=== PATIENT | male | born 1985 | race Caucasian/White ===

== ENCOUNTER 2022-11-12 19:48 | Emergency (ER) | payer BC, OTHER ==
[2022-11-12 20:34] VITALS: RESP 18; TEMP 98.7
--- NOTE | 2022-11-12 22:25 | XR ---
EXAMINATION TYPE: XR chest 1V portable DATE OF EXAM: 11/12/2022 COMPARISON: None INDICATION: Pain, URI TECHNIQUE: Single frontal view of the chest is obtained. FINDINGS: The heart size is normal. The pulmonary vasculature is normal. The lungs are clear. IMPRESSION: 1. No acute pulmonary process.
[2022-11-12] MEDS ORDERED: KETOROLAC 15 MG/ML 1 ML VIAL IM STA (23:36)
--- NOTE | 2022-11-12 23:52 | ED ---
General Adult HPI - General Chief complaint: Upper Respiratory Infection Stated complaint: Sore Throat Time Seen by Provider: 11/12/22 21:16 Source: patient Mode of arrival: ambulatory Limitations: no limitations - History of Present Illness Initial comments: 7-year-old male with no significant past medical history presented to the ED with chief complaint of URI symptoms. Patient states over the past 3 days has had cough, congestion, sore throat, and myalgias. States that he has used her tach with no relief of this prompting further evaluation in the ED. Denies chest pain or shortness of breath. No other complaints. - Related Data Previous Rx's Medication Instructions Recorded Guaifenesin/Pseudoephedrne HCl 1 tab PO BID PRN 7 Days #14 tab 11/12/22 [Mucinex D ER 1,200-120 mg Tab] Allergies Allergy/AdvReac Type Severity Reaction Status Date / Time No Known Allergies Allergy Verified 11/12/22 20:34 Review of Systems ROS Statement: Those systems with pertinent positive or pertinent negative responses have been documented in the HPI. ROS Other: All systems not noted in ROS Statement are negative. Past Medical History Past Medical History: No Reported History History of Any Multi-Drug Resistant Organisms: MRSA Past Surgical History: No Surgical Hx Reported Past Psychological History: No Psychological Hx Reported Smoking Status: Current every day smoker Past Alcohol Use History: Rare Past Drug Use History: None Reported General Exam Limitations: no limitations General appearance: alert, in no apparent distress Head exam: Present: atraumatic, normocephalic, other (Left maxillary tenderness to palpation) Eye exam: Present: normal appearance ENT exam: Present: mucous membranes moist, TM's normal bilaterally, other (Tonsils Minimally enlarged, no exudate.) Respiratory exam: Present: normal lung sounds bilaterally Cardiovascular Exam: Present: regular rate, normal rhythm GI/Abdominal exam: Present: soft Neurological exam: Present: alert, oriented X3 Psychiatric exam: Present: normal affect, normal mood Skin exam: Present: warm, dry Course Vital Signs 11/12/22 20:31 Temperature 98.7 F Pulse Rate 88 Respiratory 18 Rate Blood Pressure 110/88 O2 Sat by Pulse 97 Oximetry Medical Decision Making - Medical Decision Making Was pt. sent in by a medical professional or institution (, PA, LENS GENERATING MACHINE TENDER, urgent care, hospital, or alf...) When possible be specific @ -No Did you speak to anyone other than the patient for history (EMS, parent, family, police, friend...)? What history was obtained from this source @ -No Did you review nursing and triage notes (agree or disagree)? Why? @ -I reviewed and agree with nursing and triage notes Were old charts reviewed (outside hosp., previous admission, EMS record, old EKG, old radiological studies, urgent care reports/EKG's, alf records)? Report findings @ -No old charts were reviewed Differential Diagnosis (chest pain, altered mental status, abdominal pain women, abdominal pain men, vaginal bleeding, weakness, fever, dyspnea, syncope, headache, dizziness, GI bleed, back pain, seizure, CVA, palpatations, mental health, musculoskeletal)? @ -Differential Fever: Pneumonia, viral URI, endocarditis, myocarditis, pericarditis, otitis, sinusitis, peritonsillar Abscess, retropharyngeal Abscess, epiglottitis, peritonitis, appendicitis, Basia cystitis, diverticulitis, hepatitis, colitis, UTI, PID, TOA, pyelonephritis, prostatitis, epididymitis, meningitis, encephalitis, pulmonary embolism, CVA, thyroid storm, pancreatitis, adrenal crisis, cavernous sinus thrombosis, this is not meant to be an all-inclusive list. EKG interpreted by me (3pts min.). @ -As above X-rays interpreted by me (1pt min.). @ -Chest x-ray showed no evidence of pneumonia or other acute process. CT interpreted by me (1pt min.). @ -None done U/S interpreted by me (1pt. min.). @ -None done What testing was considered but not performed or refused? (CT, X-rays, U/S, labs)? Why? @ -Laboratory studies were considered however at this time patient is afebrile symptoms most likely due to viral URI. What meds were considered but not given or refused? Why? @ -None Did you discuss the management of the patient with other professionals (professionals i.e. , PA, LENS GENERATING MACHINE TENDER, lab, RT, psych nurse, social media marketing specialist, hot mill operator, teacher, front desk officer, patient case manager)? Give summary @ -No Was smoking cessation discussed for >3mins.? @ -No Was critical care preformed (if so, how long)? @ -No Were there social determinants of health that impacted care today? How? (Homelessness, low income, unemployed, alcoholism, drug addiction, transportation, low edu. Level, literacy, decrease access to med. care, intermediate, rehab)? @ -No Was there de-escalation of care discussed even if they declined (Discuss DNR or withdrawal of care, Hospice)? DNR status @ -No What co-morbidities impacted this encounter? (DM, HTN, Smoking, COPD, CAD, Cancer, CVA, ARF, Chemo, Hep., AIDS, mental health diagnosis, sleep apnea, morbid obesity)? @ -None Was patient admitted / discharged? Hospital course, mention meds given and route, prescriptions, significant lab abnormalities, going to OR and other pertinent info. @ -Charged. Chest x-ray as above. Patient had improvement of symptoms with Toradol. Four panel negative for influenza A, influenza B, RSV, and COVID. Sent home with a prescription for Mucinex D. Discussed return precautions with patient who verbalizes agreement. Undiagnosed new problem with uncertain prognosis? @ -No Drug Therapy requiring intensive monitoring for toxicity (Heparin, Nitro, Insulin, Cardizem)? @ -No Were any procedures done? @ -No Diagnosis/symptom? @ -Viral URI, sinusitis Acute, or Chronic, or Acute on Chronic? @ -Acute Uncomplicated (without systemic symptoms) or Complicated (systemic symptoms)? @ -Uncomplicated Side effects of treatment? @ -No Exacerbation, Progression, or Severe Exacerbation? @ -No Poses a threat to life or bodily function? How? (Chest pain, USA, MA, pneumonia, PE, COPD, DKA, ARF, appy, cholecystitis, CVA, Diverticulitis, Homicidal, Suicidal, threat to staff... and all critical care pts) @ -No - Lab Data Lab Results 11/12/22 Range/Units 22:05 Influenza Type A (PCR) Not Detected (Not Detectd) Influenza Type B (PCR) Not Detected (Not Detectd) RSV (PCR) Not Detected (Not Detectd) SARS-CoV-2 (PCR) Not Detected (Not Detectd) Disposition Clinical Impression: Sinusitis Disposition: HOME SELF-CARE Condition: Good Instructions (If sedation given, give patient instructions): Sinusitis (ED), Upper Respiratory Infection (ED) Additional Instructions: Please return to the Emergency Department if symptoms worsen or any other concerns. Prescriptions: Guaifenesin/Pseudoephedrne HCl [Mucinex D ER 1,200-120 mg Tab] 1 tab PO BID PRN 7 Days #14 tab PRN Reason: Nasal Congestion Is patient prescribed a controlled substance at d/c from ED?: No Referrals: Nonstaff,Physician [Primary Care Provider] - 1-2 days Time of Disposition: 23:52
[2022-11-13 00:01] VITALS: BP 112/72; PULSE 72
== END 2022-11-13 00:01 | disposition home or self-care (01) ==
LOC: EC 19:48
DX: J32.0 Chronic maxillary sinusitis (principal); F17.200 Nicotine dependence, unspecified, uncomplicated; Z20.822 Contact with and (suspected) exposure to COVID-19
CPT/HCPCS: 87636; 71045; 99283; 96372; J1885

== ENCOUNTER 2024-03-31 06:46 | Emergency (ER) | payer BC, OTHER ==
[2024-03-31] MEDS: TETRACAINE 0.5% OPHTH (PF) DROPS 4 ML BTL RIGHT EYE STA (08:11)
[2024-03-31] MEDS: FLUORESCEIN STRIPS 1 MG STRIP RIGHT EYE ONE (08:11)
--- NOTE | 2024-03-31 08:59 | ED ---
General Adult HPI - General Chief complaint: Eye Problems Stated complaint: R eye infection Time Seen by Provider: 03/31/24 07:35 Source: patient, RN notes reviewed, old records reviewed Mode of arrival: ambulatory Limitations: no limitations - History of Present Illness Initial comments: Patient is a 38-year-old male who presents emergency department complaining of right eye irritation. States he had an "zit" on the lower eyelid of his right eye which he popped but he has been having pustular drainage out of his eye as well as some irritation of his eye since he did that. Denies any change in visual acuity. Wears glasses at baseline but did not bring them with him. Denies any fever or chills. Denies any pain with movement of the eye. Denies any swelling or edema around the eye. No other acute complaints at this time. Presents for further evaluation. Denies any foreign body contaminant. - Related Data Previous Rx's Medication Instructions Recorded Guaifenesin/Pseudoephedrne HCl 1 tab PO BID PRN 7 Days #14 tab 11/12/22 [Mucinex D ER 1,200-120 mg Tab] Ofloxacin 0.3% Ophth Soln [Ocuflox 2 drops BOTH EYES QID #10 ml 03/31/24 Ophth Soln] Allergies Allergy/AdvReac Type Severity Reaction Status Date / Time No Known Allergies Allergy Verified 03/31/24 07:53 Review of Systems ROS Statement: Those systems with pertinent positive or pertinent negative responses have been documented in the HPI. Review of Systems: CONST: Denies fever EYES: Endorses pustular drainage out of right eye. ENT: Denies nasal congestion C/V: Denies Chest pain RESP: Denies shortness of breath GI: Denies abdominal pain : Denies dysuria SKIN: Denies rash. MSK: Denies joint pain. NEURO: Denies headache ROS Other: All systems not noted in ROS Statement are negative. Past Medical History Past Medical History: Asthma History of Any Multi-Drug Resistant Organisms: MRSA Past Surgical History: No Surgical Hx Reported Past Psychological History: No Psychological Hx Reported Smoking Status: Current every day smoker Past Alcohol Use History: Rare Past Drug Use History: None Reported General Exam - General Exam Comments Initial Comments: General: Appears in no acute distress. HEAD: Normal with no signs of head trauma. EYES: EOMI. pupils equal round and reactive to light bilaterally. Injected right conjunctiva. Patient has the remnants of what appears to be a stye of the right lower eyelid. No obvious pustular drainage at this time. Visual acuity of the right eye is 20/30, left eye is 20/25 and bilaterally is 20/25. ENT: Hearing grossly intact. RESPIRATORY: No respiratory distress. C/V: Regular rate and rhythm. ABD: Abdomen is nondistended. EXT: No obvious deformity. SKIN: No rashes or lesions observed on exposed skin. NEURO: Alert and oriented. Limitations: no limitations Course Vital Signs 03/31/24 07:51 Temperature 98.1 F Pulse Rate 74 Respiratory 20 Rate Blood Pressure 151/93 O2 Sat by Pulse 99 Oximetry Medical Decision Making - Medical Decision Making Was pt. sent in by a medical professional or institution (JUAN JOSÉ Bennett, COOK HELPER, urgent care, hospital, or prison...) When possible be specific @ -No Did you speak to anyone other than the patient for history (EMS, parent, family, police, friend...)? What history was obtained from this source @ -No Did you review nursing and triage notes (agree or disagree)? Why? @ -I reviewed and agree with nursing and triage notes Were old charts reviewed (outside hosp., previous admission, EMS record, old EKG, old radiological studies, urgent care reports/EKG's, prison records)? Report findings @ -No old charts were reviewed Differential Diagnosis (chest pain, altered mental status, abdominal pain women, abdominal pain men, vaginal bleeding, weakness, fever, dyspnea, syncope, headache, dizziness, GI bleed, back pain, seizure, CVA, palpatations, mental health, musculoskeletal)? @ -Corneal abrasion, stye, orbital cellulitis, periorbital cellulitis. This list is not all inclusive. EKG interpreted by me (3pts min.). @ -None done X-rays interpreted by me (1pt min.). @ -None done CT interpreted by me (1pt min.). @ -None done U/S interpreted by me (1pt. min.). @ -None done What testing was considered but not performed or refused? (CT, X-rays, U/S, labs)? Why? @ -None What meds were considered but not given or refused? Why? @ -None Did you discuss the management of the patient with other professionals (professionals i.e. , PA, COOK HELPER, lab, RT, psych nurse, social media marketer, kettle skimmer, teacher, chief strategy officer, pillowcase cleaner)? Give summary @ -No Was smoking cessation discussed for >3mins.? @ -No Was critical care preformed (if so, how long)? @ -No Were there social determinants of health that impacted care today? How? (H omelessness, low income, unemployed, alcoholism, drug addiction, transportation, low edu. Level, literacy, decrease access to med. care, prison, rehab)? @ -No Was there de-escalation of care discussed even if they declined (Discuss DNR or withdrawal of care, Hospice)? DNR status @ -No What co-morbidities impacted this encounter? (DM, HTN, Smoking, COPD, CAD, Cancer, CVA, ARF, Chemo, Hep., AIDS, mental health diagnosis, sleep apnea, morbid obesity)? @ -None Was patient admitted / discharged? Hospital course, mention meds given and route, prescriptions, significant lab abnormalities, going to OR and other pertinent info. @ -Based on patient's presentation and physical exam, patient presents emergency department complaining of right eye irritation. Appears to have remnants of a stye that he ruptured recently in the last few days but is now having some pustular drainage and eye irritation on that side as well. Visual acuity is within acceptable limits. Eye exam other than the conjunctival injection is within acceptable limits. Fluorescein staining was performed and revealed a corneal abrasion in the 8 o'clock position of the right eye. Patient will be started on ofloxacin drops. He has been using ofloxacin drops but they are many years old and not believe they are . He was in agreement this plan. Tetanus will be updated. Recommended follow-up with his eye doctor and he will be provided information for ophthalmology. Patient was in agreement this plan. He will be discharged home at this time. No evidence or symptoms consistent with orbital cellulitis or periorbital cellulitis. I will provide the patient with a prescription for ofloxacin eyedrops. I instructed the patient to follow up with their PCP in the next 1-3 days. I provided contact information for follow up with ophthalmology. I explained that the patient should return to the emergency department if they experience any worsening symptoms. Strict return precautions were discussed with the patient. The patient expressed understanding of these instructions. I answered all questions that the patient had. The patient was discharged home in good condition with their prescriptions and follow up information. Undiagnosed new problem with uncertain prognosis? @ -No Drug Therapy requiring intensive monitoring for toxicity (Heparin, Nitro, Insulin, Cardizem)? @ -No Were any procedures done? @ -No Diagnosis/symptom? @ -Stye, corneal abrasion Acute, or Chronic, or Acute on Chronic? @ -Acute Uncomplicated (without systemic symptoms) or Complicated (systemic symptoms)? @ -Uncomplicated Side effects of treatment? @ -No Exacerbation, Progression, or Severe Exacerbation? @ -No Poses a threat to life or bodily function? How? (Chest pain, USA, MA, pneumonia, PE, COPD, DKA, ARF, appy, cholecystitis, CVA, Diverticulitis, Homicidal, Suicidal, threat to staff... and all critical care pts) @ -No Disposition Clinical Impression: Stye, Corneal abrasion Disposition: HOME SELF-CARE Condition: Good Instructions (If sedation given, give patient instructions): Stye (ED), Corneal Abrasion (ED) Prescriptions: Ofloxacin 0.3% Ophth Soln [Ocuflox Ophth Soln] 2 drops BOTH EYES QID #10 ml Is patient prescribed a controlled substance at d/c from ED?: No Referrals: Nonstaff,Physician [Primary Care Provider] - 1-2 days Jason Maguire MD [STAFF PHYSICIAN] - 1-2 days Forms: Area PCPs Time of Disposition: 08:59
[2024-03-31] MEDS: DIPH,PERTUS(ACELL)TETVAC-LF 0.5 ML VIAL IM ONE (09:21)
[2024-03-31] MEDS: OFLOXACIN 0.3% OPHTH DROPS 5 ML BOTTLE BOTH EYES SCH (09:22)
[2024-03-31 09:31] VITALS: BP 146/86; PULSE 70; RESP 18; TEMP 98
== END 2024-03-31 09:41 | disposition home or self-care (01) ==
LOC: EC 06:46
DX: S05.01XA Injury of conjunctiva and corneal abrasion without foreign body, right eye, initial encounter (principal); H00.022 Hordeolum internum right lower eyelid; F17.200 Nicotine dependence, unspecified, uncomplicated; Z23 Encounter for immunization; X58.XXXA Exposure to other specified factors, initial encounter
CPT/HCPCS: 90471; 90715; 99283

== ENCOUNTER 2024-07-12 20:26 | Emergency (ER) | payer BC, OTHER ==
[2024-07-12 20:46] VITALS: TEMP 98
[2024-07-12 22:20] LABS: Appearance,Urine Clear (Clear); Bilirubin,Urine Negative (Negative); Blood,Urine Negative (Negative); Color,Urine Colorless; Glucose,Urine (UA) Negative (Negative); Ketones,Urine Negative (Negative); Leukocyte Esterase,Urine Negative (Negative); Nitrite,Urine Negative (Negative); Protein,Urine Negative (Negative); Urobilinogen,Urine <2.0 mg/dL (<2.0)
--- NOTE | 2024-07-12 22:23 | ED ---
General Adult HPI - General Chief complaint: Urogenital Stated complaint: Extremity Issues Time Seen by Provider: 07/12/24 21:37 Source: patient Mode of arrival: ambulatory Limitations: no limitations - History of Present Illness Initial comments: Patient is a 38-year-old gentleman no significant past medical history presenting today for bruising on his penis. States that about 1 week ago he was treated for pneumonia with doxycycline and steroids. About 3 days ago he began noticing burning with urination and discoloration of his penis that he describes appears as bruising. Worsened this morning prompting him to seek treatment in the ER. Patient endorses associated dysuria and generalized sensitivity throughout his penis and testicles. No testicular swelling, no penile discharge. No hematuria. Patient denies trauma or getting his penis caught in a zipper. Last time he was sexually active was about 4 months ago. He states he does have a history of gonorrhea and chlamydia however he has been treated for these issues each time he has had them. He gets checked for STDs every 6 months last check was in March. He denies any history of bleeding or bruising disorders. Denies current fevers or chills, nausea vomiting or abdominal pain. Took Motrin this afternoon around lunchtime. Currently rates pain a 6 out of 10. - Related Data Previous Rx's Medication Instructions Recorded Guaifenesin/Pseudoephedrne HCl 1 tab PO BID PRN 7 Days #14 tab 11/12/22 [Mucinex D ER 1,200-120 mg Tab] Ofloxacin 0.3% Ophth Soln [Ocuflox 2 drops BOTH EYES QID #10 ml 03/31/24 Ophth Soln] Allergies Allergy/AdvReac Type Severity Reaction Status Date / Time No Known Allergies Allergy Verified 07/12/24 20:46 Review of Systems ROS Statement: Those systems with pertinent positive or pertinent negative responses have been documented in the HPI. ROS Other: All systems not noted in ROS Statement are negative. Past Medical History Past Medical History: Asthma History of Any Multi-Drug Resistant Organisms: MRSA Past Surgical History: No Surgical Hx Reported Past Psychological History: No Psychological Hx Reported Smoking Status: Current every day smoker Past Alcohol Use History: Rare Past Drug Use History: None Reported General Exam - General Exam Comments Initial Comments: PE: CONSTITUTIONAL: No apparent distress, well appearing SKIN: Warm, dry, no jaundice, hives or petechiae, please see exam below, otherwise no evidence of additional bruises or rashes on patient's trunk or extremities EYES: Pupils are equally round, extraocular movements intact without nystagmus, clear conjunctiva, non-icteric sclera HENT: Normocephalic, atraumatic, moist mucus membranes, oropharynx clear without exudates NECK: , Full range of motion, normal appearance PULMONARY: Clear to auscultation without wheezes, rhonchi, or rales, normal excursion, no accessory muscle use and no stridor CARDIOVASCULAR: Regular rate, rhythm, normal S1 and S2. No appreciated murmurs, rubs or gallops. Strong radial pulses with intact distal perfusion. No lower extremity edema GASTROINTESTINAL: Soft, active bowel sounds throughout, non-tender, non-di stended, no palpable masses, no rebound or guarding. No hepatosplenomegaly GENITOURINARY: MAHAMED Martinez as grief counselor, patchy bruise-like discoloration just inferior to the head of the penis at the 10 o'clock position with uneven borders, similar-appearing lesion at the base of the penis at the 6 o'clock position, there are no ulcers, no exudates, no lymphadenopathy, no penile discharge, no palpable hernias, no testicular swelling, patient endorses increased sensitivity to light touch MUSCULOSKELETAL: Extremities have no gross deformity NEUROLOGIC:_a/o x 3, GCS 15, normal mentation and speech. Moves all extremities x 4 without motor or sensory deficit PSYCHIATRIC:_normal mood and affect, thought process is clear and linear Limitations: no limitations Course Vital Signs 07/12/24 07/12/24 20:43 23:57 Temperature 98.0 F Pulse Rate 94 59 L Respiratory 17 18 Rate Blood Pressure 153/84 131/72 O2 Sat by Pulse 99 98 Oximetry Medical Decision Making - Medical Decision Making Was pt. sent in by a medical professional or institution (, PA, MANAGER PAID, urgent care, hospital, or prison...) When possible be specific @ -No Did you speak to anyone other than the patient for history (EMS, parent, family, police, friend...)? What history was obtained from this source @ -No Did you review nursing and triage notes (agree or disagree)? Why? @ -I reviewed nursing and triage notes Differential Diagnosis (chest pain, altered mental status, abdominal pain women, abdominal pain men, vaginal bleeding, weakness, fever, dyspnea, syncope, headache, dizziness, GI bleed, back pain, seizure, CVA, palpatations, mental health, musculoskeletal)? @ -Differential diagnosis remains broad over top considerations included trauma, infection, considered Kaposi's sarcoma however patient has no additional lesions on the rest of his body, bleeding disorder however patient has no history of the same and no other evidence of easy bleeding no petechiae on the rest of his body, therefore I do not feel additional blood work is necessary at this time and I feel urinalysis and STI testing is sufficient at this point. This is not an inclusive list. EKG interpreted by me (3pts min.). @ -As above X-rays interpreted by me (1pt min.). @ -None done CT interpreted by me (1pt min.). @ -None done U/S interpreted by me (1pt. min.). @ -None done What testing was considered but not performed or refused? (CT, X-rays, U/S, labs)? Why? @An ultrasound was considered however bruising was limited to penis only, remainder of genital exam was unremarkable What meds were considered but not given or refused? Why? @ -None Did you discuss the management of the patient with other professionals (professionals i.e. , PA, MANAGER PAID, lab, RT, psych nurse, director of social work, gambling cashier, teacher, transportation security officer, cyanide case hardener)? Give summary Yes, discussed with Dr. Farah, urology, see below Was smoking cessation discussed for >3mins.? @ -No Was critical care preformed (if so, how long)? @ -No Were there social determinants of health that impacted care today? How? (Homelessness, low income, unemployed, alcoholism, drug addiction, transportation, low edu. Level, literacy, decrease access to med. care, retirement, rehab)? @ -No Was there de-escalation of care discussed even if they declined (Discuss DNR or withdrawal of care, Hospice)? @ -No What co-morbidities impacted this encounter? (DM, HTN, Smoking, COPD, CAD, Cancer, CVA, ARF, Chemo, Hep., AIDS, mental health diagnosis, sleep apnea, morbid obesity)? @ -None Was patient admitted / discharged? Hospital course, mention meds given and route, prescriptions, significant lab abnormalities, going to OR and other pertinent info. Discharged-this is a pleasant 38-year-old gentleman presenting today for what appeared to be atraumatic bruising on his penis. States history of STIs however is screened regularly for them and has not had any sex activity in the last 4 months. exam revealed 2 bruise-like lesions 1 just inferior to the head of the penis and one at the base of the penis, these do not have underlying swelling, no ulceration, no penile discharge or other lesions noted. Denies systemic symptoms. Patient request prophylactic treatment for STIs, urinalysis will be obtained as well as gonorrhea chlamydia testing. Patient will be given 1 g azithromycin as well as dose of Rocephin. Contacted urology, Dr. Farah for further recommendation/opinion regarding patient's physical exam findings however he reports he has not heard of this pathology before and recommends that patient follow-up outpatient at the [facility] urologist in the [facility] and he does not believe patient's complaint necessitates emergent evaluation/transfer at this time. Urinalysis without signs of infection. Patient has already been provided treated for STIs here in the ER, gonorrhea and chlamydia testing pending will be called if positive. I discussed with patient recommendations from urology as well as the importance of close follow-up with both his PCP and urology. We discussed signs and symptoms warranting return to the emergency department. All questions were answered and patient is comfortable discharge at this time. In my medical judgment there is currently no evidence of an immediate life- threatening or surgical condition. Discharge is therefore indicated at this time. Discharge treatment instructions, follow up instructions, and appropriate emergency department return precautions were discussed with the patient and/or medical decision maker. Patient and/or medical decision maker expressed understanding of and agreed with the treatment plan, follow up instructions, and emergency department return precaution. All patient's and/or medical decision maker's questions were answered. Undiagnosed new problem with uncertain prognosis? @ -No Drug Therapy requiring intensive monitoring for toxicity (Heparin, Nitro, Insulin, Cardizem)? @ -No Were any procedures done? @ -No Diagnosis/symptom? Bruising around penis/penile pain, prophylactic treatment for STIs Acute, or Chronic, or Acute on Chronic? @Acute Uncomplicated (without systemic symptoms) or Complicated (systemic symptoms)? @Uncomplicated Side effects of treatment? @ -No Exacerbation, Progression, or Severe Exacerbation? @ -No Poses a threat to life or bodily function? How? (Chest pain, [place], [place], pneumonia, PE, COPD, DKA, ARF, appy, cholecystitis, CVA, Diverticulitis, Homicidal, Suicidal, threat to staff... and all critical care pts) @ -No - Lab Data Lab Results 07/12/24 07/12/24 Range/Units 22:07 22:07 Urine Color Colorless Urine Appearance Clear (Clear) Urine pH 6.0 (5.0-8.0) Ur Specific [place] 1.010 (1.001-1.035) Urine Protein Negative (Negative) Urine Glucose (UA) Negative (Negative) Urine Ketones Negative (Negative) Urine Blood Negative (Negative) Urine Nitrite Negative (Negative) Urine Bilirubin Negative (Negative) Urine Urobilinogen <2.0 (<2.0) mg/dL Ur Leukocyte Esterase Negative (Negative) Chlamydia DNA (PCR) Negative (Negative) N.gonorrhoeae DNA Probe Negative (Negative) Disposition Clinical Impression: Penile pain Disposition: HOME SELF-CARE Condition: Good Instructions (If sedation given, give patient instructions): Hematoma (ED) Additional Instructions: Every disease is a spectrum and a small chance still exists that a serious condition could develop, for this reason, please monitor yourself closely for new, changing or worsening symptoms, uncontrollable pain, fevers, discharge from your penis, spread of lesions, inability to follow-up with outpatient providers as instructed, symptoms that persist beyond 48 hours, fever, inability to tolerate/keep down fluids or your medications, inability to follow up with outpatient providers as instructed and should you experience these symptoms or should you have any further concerns for your wellbeing please return to the ED or call 911 immediately. Please keep area clean and dry. You may use cool compresses around the affected area for 20 minutes every 3-4 hours. Please wear supportive underwear. Please follow-up with the team at [facility] urology, phone #[phone] or have your primary care provider refer you to one of the urologist in the [facility] area. PLEASE call your primary care physician as soon as possible to arrange / discuss plan for followup appointment. Appointment in the next 1-3 days is strongly encouraged if possible. PLEASE let us know here before you leave if there is anything further we can do to be of any assistance. Take care and feel Better! Is patient prescribed a controlled substance at d/c from ED?: No Referrals: Andre Dejesus DO [Primary Care Provider] - 1-2 days
[2024-07-12] MEDS: KETOROLAC 15 MG/ML 1 ML VIAL IM STA (22:26)
[2024-07-12] MEDS: HYDROcodone/APAP 5-325MG 1 EACH TAB PO STA (22:27)
[2024-07-12] MEDS: AZITHROMYCIN 500 MG TAB PO STA (22:27)
[2024-07-12] MEDS: cefTRIAXone 1,000 MG VIAL (IM USE) IM STA (22:27)
[2024-07-12] MEDS: ACETAMINOPHEN TAB 325 MG TAB PO STA (22:28)
[2024-07-12] MEDS: ACET/COD 300 MG/30 MG STARTER PACK 6 TAB BTL PO STA (23:55)
[2024-07-12 23:58] VITALS: BP 131/72; PULSE 59; RESP 18
[2024-07-15 13:19] LABS: N. gonorrhoeae,PCR Negative (Negative)
[2024-07-15 13:21] LABS: C. trachomatis,PCR Negative (Negative)
== END 2024-07-12 23:57 | disposition home or self-care (01) ==
LOC: EC 20:26
DX: N48.89 Other specified disorders of penis (principal); F17.200 Nicotine dependence, unspecified, uncomplicated
CPT/HCPCS: 81003; 87491; 87591; 99283; 96372 ×2; J0696; J1885